=== PATIENT | female | born 1955 ===

== ENCOUNTER 2017-10-26 11:31 | Outpatient (CLI) | payer OTHER ==
[~2017-10-26] VITALS: Ht 162.6 cm; Wt 76.2 kg
[~2017-10-26 11:31] MED LIST: ACTONEL150 MG
== END 2017-10-26 11:50 | disposition home or self-care (01) ==
LOC: OFIC 805 11:31
DX: J30.89 Other allergic rhinitis (principal); R09.81 Nasal congestion

== ENCOUNTER 2017-11-24 09:19 | Outpatient (CLI) | payer OTHER ==
[~2017-11-24] VITALS: Ht 152.4 cm; Wt 76.2 kg
== END 2017-11-24 09:40 | disposition home or self-care (01) ==
LOC: OFIC 805 09:19
DX: J30.89 Other allergic rhinitis (principal); R09.81 Nasal congestion; H60.8X3 Other otitis externa, bilateral; H61.23 Impacted cerumen, bilateral

== ENCOUNTER → 2018-03-12 | Outpatient (CLI) | payer OTHER | END | disposition home or self-care (01) | LOC: MAMO-SONO 10:22 | DX: Z12.31 Encounter for screening mammogram for malignant neoplasm of breast (principal) ==

== ENCOUNTER 2018-07-23 17:58 | Emergency (ER) | payer OTHER ==
[~2018-07-23] VITALS: Ht 162.6 cm; Wt 74.4 kg
[2018-07-23] MEDS ORDERED: LISINOPRIL2.5 MG (18:10)
[2018-07-23] MEDS ORDERED: ZANTAC 7575 MG (18:10)
[2018-07-23] MEDS ORDERED: VITAMIN D10000 UNIT (18:11)
[2018-07-23] MEDS ORDERED: CALTRATE 600+D1 EAC1 (18:12)
[2018-07-23] MEDS ORDERED: CALCIUM500 M1 (18:12)
== END 2018-07-23 21:23 | disposition home or self-care (01) ==
LOC: ER 17:58
DX: R51 Headache (principal)

== ENCOUNTER 2020-07-05 14:12 | Outpatient (CLI) | payer OTHER ==
[~2020-07-05 14:12] MED LIST changes: +CALCIUM500 M1; +CALTRATE 600+D1 EAC1; +LISINOPRIL2.5 MG; +VITAMIN D10000 UNIT; +ZANTAC 7575 MG
== END 2020-07-05 14:21 | disposition home or self-care (01) ==
LOC: TOM 14:12
PROVIDERS: ATTEND Specialist
DX: M48.8X7 Other specified spondylopathies, lumbosacral region (principal); G31.89 Other specified degenerative diseases of nervous system; G57.01 Lesion of sciatic nerve, right lower limb

== ENCOUNTER 2021-01-31 10:33 | Outpatient (CLI) | payer OTHER ==
[2021-02-03] MEDS ORDERED: CRESTOR10 MG (12:46)
[2021-02-03] MEDS ORDERED: TOPROL XL25 M1 (12:46)
[2021-02-03] MEDS ORDERED: HYDRODIURIL12.5 MG (12:46)
== END 2021-01-31 10:46 | disposition home or self-care (01) ==
LOC: MAMO-SONO 10:33
PROVIDERS: ATTEND Pathology Anatomic Pathology & Clinical Pathology
DX: Z12.31 Encounter for screening mammogram for malignant neoplasm of breast (principal); N60.12 Diffuse cystic mastopathy of left breast

== ENCOUNTER → 2021-02-03 | Emergency (ER) | payer OTHER ==
[~2021-02-03] VITALS: Ht 162.6 cm; Wt 74.8 kg
[~2021-02-03] MED LIST changes: +CRESTOR10 MG; +HYDRODIURIL12.5 MG; +TOPROL XL25 M1
== END | disposition left against medical advice (07) ==
LOC: ER 12:29
DX: Z53.20 Procedure and treatment not carried out because of patient's decision for unspecified reasons (principal)

== ENCOUNTER 2022-11-07 08:33 | Outpatient (CLI) | payer OTHER | END 2022-11-07 08:37 | disposition home or self-care (01) | LOC: TOM 08:33 | PROVIDERS: ATTEND Internal Medicine Gastroenterology | DX: R19.7 Diarrhea, unspecified (principal); K62.5 Hemorrhage of anus and rectum; R63.4 Abnormal weight loss ==

== ENCOUNTER 2024-03-14 07:38 | Outpatient (CLI) | payer OTHER | END 2024-03-14 07:39 | disposition home or self-care (01) | LOC: NUCLEAR 07:38 | PROVIDERS: ATTEND Internal Medicine | DX: I87.2 Venous insufficiency (chronic) (peripheral) (principal) ==

== ENCOUNTER 2024-03-22 10:15 | Outpatient (CLI) | payer OTHER | END 2024-03-22 10:19 | disposition home or self-care (01) | LOC: RAD 10:15 | PROVIDERS: ATTEND Internal Medicine Pulmonary Disease | DX: J44.1 Chronic obstructive pulmonary disease with (acute) exacerbation (principal) ==

== ENCOUNTER 2024-03-29 08:05 | Outpatient (CLI) | payer OTHER | END 2024-03-29 08:06 | disposition home or self-care (01) | LOC: NUCLEAR 08:05 | PROVIDERS: ATTEND Internal Medicine Pulmonary Disease | DX: R06.02 Shortness of breath (principal); I27.0 Primary pulmonary hypertension ==

== ENCOUNTER 2024-06-18 10:22 | Emergency (ER) | payer OTHER ==
[~2024-06-18] VITALS: Ht 162.6 cm; Wt 78.9 kg
[2024-06-18] MEDS ORDERED: DEXAMETHASONE SODIUM PHOSPHATE 4 MG/ML VIAL IM STA (14:17)
[2024-06-18] MEDS ORDERED: ORPHENADRINE CITRATE 30 MG/ML AMPUL IM STA (14:18)
== END 2024-06-18 18:51 | disposition home or self-care (01) ==
LOC: ER 10:22
DX: S93.492A Sprain of other ligament of left ankle, initial encounter (principal); W18.39XA Other fall on same level, initial encounter; Y93.89 Activity, other specified; Y92.89 Other specified places as the place of occurrence of the external cause; Z88.6 Allergy status to analgesic agent; Z88.8 Allergy status to other drugs, medicaments and biological substances
CPT/HCPCS: 73610; 73630; 96372; 99283; J1100; J2360

== ENCOUNTER 2025-01-05 11:12 | Outpatient (CLI) | payer OTHER | END 2025-01-05 11:20 | disposition home or self-care (01) | LOC: MRI 11:12 | PROVIDERS: ATTEND Orthopaedic Surgery | DX: S83.241A Other tear of medial meniscus, current injury, right knee, initial encounter (principal); X58.XXXA Exposure to other specified factors, initial encounter; Y93.9 Activity, unspecified; Y92.9 Unspecified place or not applicable; Y99.9 Unspecified external cause status | CPT/HCPCS: 73721 ==

== ENCOUNTER 2025-01-30 08:48 | Outpatient (CLI) | payer OTHER ==
[2025-01-30 10:19] LABS: BASO % 1.1 % (0.1-1.2); EOS # 0.17 (0.04-0.54); EOS % 4.6 % (0.7-7.0); LYMPH # 1.02 (1.18-3.74); LYMPH % 27.7 % (19.3-53.1); MEAN PLATELET VOLUME 10.70 fl (9.4-12.4); MONO # 0.26 (0.24-0.82); MONO % 7.1 % (4.7-12.5); NEUT # 2.18 (1.56-6.13); NEUT % 59.2 % (34.0-71.1); RED CELL DISTRIBUTION WIDTH 12.9 % (11.6-14.4)
[2025-01-30 11:31] LABS: % SATURACION 20.7 % (15-50); ALT/SGPT 30.0 U/L (12-78); AST/SGOT 13.0 U/L (15-37); BILIRUBIN TOTAL 0.53 mg/dL (0.3-1.2); BUN CREA RATIO 26.0 (7.0-25.0); CREATININE SERUM 0.5 mg/dL (0.55-1.02); FE 74.0 ug/dl (50-170); GFR 121.97; GLOBULINA 3.1 G/DL (2.4-3.5); GLUCOSE FASTING 90.0 mg/dL (65-100); LDH 188.0 U/L (84-246); OSMOLALITY SERUM 288.0 MOSM/KG (275-295); T4 FREE 1.05 NG/ML (0.76-1.46); TSH 1.26 uIU/mL (0.358-3.74)
[2025-01-30 12:55] LABS: FOLIC ACID 18.5 ng/ml (4.78-20)
[2025-01-30 13:05] LABS: MANUAL PLATELET COUNT 228
[2025-02-01 09:11] LABS: ANTI THYROID PEROXIDASE 10 IU/mL (0-34)
== END 2025-01-30 08:51 | disposition home or self-care (01) ==
LOC: LAB 08:48
PROVIDERS: ATTEND Internal Medicine Hematology & Oncology
DX: D72.818 Other decreased white blood cell count (principal); E78.2 Mixed hyperlipidemia; I10 Essential (primary) hypertension; K29.70 Gastritis, unspecified, without bleeding; E06.3 Autoimmune thyroiditis; D50.8 Other iron deficiency anemias; R79.9 Abnormal finding of blood chemistry, unspecified; K76.89 Other specified diseases of liver; R74.02 Elevation of levels of lactic acid dehydrogenase [LDH]; D51.3 Other dietary vitamin B12 deficiency anemia; D51.1 Vitamin B12 deficiency anemia due to selective vitamin B12 malabsorption with proteinuria

== ENCOUNTER 2025-01-30 09:40 | Outpatient (CLI) | payer OTHER | END 2025-01-30 09:42 | disposition home or self-care (01) | LOC: SONOGRAMA 09:40 | PROVIDERS: ATTEND Internal Medicine Hematology & Oncology | DX: E04.2 Nontoxic multinodular goiter (principal); D72.818 Other decreased white blood cell count; E78.2 Mixed hyperlipidemia; I10 Essential (primary) hypertension; K29.70 Gastritis, unspecified, without bleeding ==

== ENCOUNTER 2025-02-09 07:16 | Outpatient (CLI) | payer OTHER | END 2025-02-09 07:25 | disposition home or self-care (01) | LOC: TOM 07:16 | PROVIDERS: ATTEND Internal Medicine | DX: A31.2 Disseminated mycobacterium avium-intracellulare complex (DMAC) (principal); R05.9 Cough, unspecified ==